=== PATIENT | male | born 1945 | race Hispanic/Latino ===

== ENCOUNTER → 2018-11-01 | Outpatient (CLI) | payer OTHER ==
[~2018-11-01] MED LIST: LEVO125 PO; TAMS0.4C32 PO
[2018-11-01 12:28] LABS: CREATININE 0.9 mg/dL (0.5-1.5)
== END | disposition home or self-care (01) ==
LOC: LAB 11:24
PROVIDERS: ATTEND Otolaryngology Plastic Surgery within the Head & Neck
DX: R22.1 Localized swelling, mass and lump, neck (principal)
CPT/HCPCS: 36415; 82565; 84520

== ENCOUNTER → 2018-11-08 | Outpatient (CLI) | payer MEDICARE, OTHER ==
[~2018-11-08] MED LIST changes: +IOHEXOL-350 50ML VIAL IV ONE
== END | disposition home or self-care (01) ==
LOC: RAH 12:39
PROVIDERS: ATTEND Otolaryngology Plastic Surgery within the Head & Neck
DX: R22.1 Localized swelling, mass and lump, neck (principal)
CPT/HCPCS: 70491; Q9967

== ENCOUNTER 2018-12-23 09:56 | Emergency (ER) | payer OTHER ==
[~2018-12-23 09:56] MED LIST changes: -IOHEXOL-350 50ML VIAL IV ONE
[2018-12-23 10:17] LABS: APPEARANCE,URINE Clear (CLEAR); BILIRUBIN,URINE Negative (NEGATIVE); COLOR,URINE Yellow (YELLOW); GLUCOSE, URINE (UA) Negative (NEGATIVE); KETONES,URINE Negative (NEGATIVE); LEUKOCYTE ESTERASE ,URINE Negative (NEGATIVE); NITRATE,URINE Negative (NEGATIVE); OCCULT BLOOD,URINE Negative (NEGATIVE); PH,URINE 6.5 (5.0-8.0); PROTEIN,URINE Negative (NEGATIVE)
[2018-12-23] MEDS ORDERED: SODIUM CHLORIDE 0.9% 500ML 500 ML IV ONE (10:54)
[2018-12-23 10:59] LABS: BASOPHILS % (AUTO) 0.7 % (0.0-5.0); EOSINOPHILS % (AUTO) 1.7 % (0.0-8.0); LYMPHOCYTES % (AUTO) 13.5 % (21.0-51.0); MEAN CORPUSCULAR HEMOGLOBIN 31.5 pg (27.0-33.0); MEAN CORPUSCULAR HGB CONC 33.8 g/dL (32.0-36.0); MEAN CORPUSCULAR VOLUME 93.4 fL (79-99); MONOCYTES % (AUTO) 7.6 % (3.0-13.0); NEUTROPHILS % (AUTO) 76.5 % (40.0-77.0); PLATELET COUNT (AUTO) 257 K/uL (130-400); RED CELL DISTRIBUTION WIDTH 14.2 % (11.0-15.5); WHITE BLOOD COUNT (AUTO) 8.9 K/uL (4.8-10.8)
[2018-12-23 11:06] LABS: CREATININE 0.8 mg/dL (0.5-1.5); POTASSIUM 4.8 mmol/L (3.5-5.1)
[2018-12-23 11:10] LABS: ALBUMIN 3.3 g/dL (3.5-5.0); BILIRUBIN,TOTAL 0.4 mg/dL (0.2-1.0); TOTAL PROTEIN, SERUM 7.1 g/dL (6.0-8.3)
== END 2018-12-23 12:30 | disposition home or self-care (01) ==
LOC: EDH 09:56
DX: M54.5 Low back pain (principal); K59.00 Constipation, unspecified; E07.9 Disorder of thyroid, unspecified; Z87.891 Personal history of nicotine dependence; Z88.0 Allergy status to penicillin
CPT/HCPCS: 36415; 74176; 80053; 81003; 84484; 85025; 99285; J7040

== ENCOUNTER → 2019-08-29 | Outpatient (CLI) | payer OTHER ==
[~2019-08-29] MED LIST changes: +DIATR MEGLU/DIATRIZOATE SODIUM 30 ML BOTTLE ONE; -LEVO125 PO; -TAMS0.4C32 PO
== END | disposition home or self-care (01) ==
LOC: RAH 09:24
PROVIDERS: ATTEND Internal Medicine Gastroenterology
DX: K94.20 Gastrostomy complication, unspecified (principal)
CPT/HCPCS: 74018; Q9963

== ENCOUNTER 2019-11-17 12:17 | Emergency (ER) | payer OTHER ==
[~2019-11-17 12:17] MED LIST changes: -DIATR MEGLU/DIATRIZOATE SODIUM 30 ML BOTTLE ONE; +LEVO125 PO; +TAMS0.4C32 PO
[2019-11-17] MEDS ORDERED: ACETAMINOPHEN 325 MG TAB ONE (13:22)
[2019-11-17 13:38] LABS: BASOPHILS % (AUTO) 0.4 % (0.0-5.0); EOSINOPHILS % (AUTO) 1.1 % (0.0-8.0); HEMATOCRIT 40.4 % (42-54); LYMPHOCYTES % (AUTO) 17.4 % (21.0-51.0); MEAN CORPUSCULAR HEMOGLOBIN 31.7 pg (27.0-33.0); MEAN CORPUSCULAR HGB CONC 33.7 g/dL (32.0-36.0); MEAN CORPUSCULAR VOLUME 94.2 fL (79-99); MONOCYTES % (AUTO) 8.4 % (3.0-13.0); NEUTROPHILS % (AUTO) 72.6 % (40.0-77.0); PLATELET COUNT (AUTO) 282 K/uL (130-400); RED BLOOD CELL COUNT(AUTO) 4.29 MIL/uL (4.50-6.20); RED CELL DISTRIBUTION WIDTH 13.7 % (11.0-15.5); WHITE BLOOD COUNT (AUTO) 7.3 K/uL (4.8-10.8)
[2019-11-17 13:55] LABS: INR 0.96 (0.85-1.15); PARTIAL THROMBOPLASTIN TIME 26.1 SEC (26.3-35.5); PROTHROMBIN TIME 10.4 SEC (9.6-11.6)
[2019-11-17 13:57] LABS: ALBUMIN 3.6 g/dL (3.5-5.0); BILIRUBIN,TOTAL 0.3 mg/dL (0.2-1.0); CREATININE 0.8 mg/dL (0.5-1.5); POTASSIUM 3.8 mmol/L (3.5-5.1); TOTAL PROTEIN, SERUM 7.1 g/dL (6.0-8.3)
[2019-11-17 14:03] LABS: APPEARANCE,URINE CLEAR (CLEAR); BILIRUBIN,URINE NEGATIVE (NEGATIVE); COLOR,URINE YELLOW (YELLOW); GLUCOSE, URINE (UA) NEGATIVE (NEGATIVE); KETONES,URINE 5 mg/dL (NEGATIVE); LEUKOCYTE ESTERASE ,URINE NEGATIVE (NEGATIVE); NITRATE,URINE NEGATIVE (NEGATIVE); OCCULT BLOOD,URINE NEGATIVE (NEGATIVE); PH,URINE 5.5 (5.0-8.0); PROTEIN,URINE NEGATIVE (NEGATIVE); UROBILINOGEN,URINE 0.2 mg/dL (0.2-1.0)
[2019-11-17] MEDS ORDERED: SODIUM CHLORIDE 0.9% 1000ML 1,000 ML IV ONE (14:33)
[2019-11-17] MEDS ORDERED: IOHEXOL 350 MG/ML 100ML INFUS..BTL IV ONE (14:35)
[2019-11-17 14:44] LABS: BACTERIA,URINE Rare /HPF (None Seen); MUCUS,URINE Moderate LPF (None Seen); RBC,URINE 0-1 /HPF (0-1); SQUAMOUS EPITHELIAL CELL,UR Rare /HPF (0-2); WBC,URINE 0-1 /HPF (0-1)
== END 2019-11-17 16:38 | disposition home or self-care (01) ==
LOC: EDH 12:17
DX: S39.012A Strain of muscle, fascia and tendon of lower back, initial encounter (principal); S16.1XXA Strain of muscle, fascia and tendon at neck level, initial encounter; Z88.1 Allergy status to other antibiotic agents; Z88.0 Allergy status to penicillin; V49.49XA Driver injured in collision with other motor vehicles in traffic accident, initial encounter; Y93.89 Activity, other specified; Y92.488 Other paved roadways as the place of occurrence of the external cause; Y99.8 Other external cause status
CPT/HCPCS: 36415; 70450; 72125; 74177; 80053; 81001; 85025; 85610; 85730; 96360; 99285; J7030; Q9967

== ENCOUNTER → 2020-03-12 | Outpatient (CLI) | payer OTHER ==
[~2020-03-12] MED LIST changes: +DIATR MEGLU/DIATRIZOATE SODIUM 30 ML BOTTLE ONE
== END | disposition home or self-care (01) ==
LOC: RAH 10:08
PROVIDERS: ATTEND Internal Medicine Gastroenterology
DX: R19.8 Other specified symptoms and signs involving the digestive system and abdomen (principal); M47.815 Spondylosis without myelopathy or radiculopathy, thoracolumbar region; Z93.1 Gastrostomy status
CPT/HCPCS: 74018; Q9963

== ENCOUNTER → 2020-05-13 | Outpatient (CLI) | payer OTHER ==
[~2020-05-13] MED LIST changes: -DIATR MEGLU/DIATRIZOATE SODIUM 30 ML BOTTLE ONE
== END | disposition home or self-care (01) ==
LOC: SHCH 08:37
PROVIDERS: ATTEND Internal Medicine Cardiovascular Disease
DX: R09.89 Other specified symptoms and signs involving the circulatory and respiratory systems (principal)
CPT/HCPCS: 93880

== ENCOUNTER → 2020-05-15 | Outpatient (CLI) | payer OTHER ==
[~2020-05-15] VITALS: Ht 175.3 cm; Wt 75.7 kg
[~2020-05-15] MED LIST changes: +REGADENOSON 0.4 MG/5 ML PF SYG IVP SCH
== END | disposition home or self-care (01) ==
LOC: SHCH 07:50
PROVIDERS: ATTEND Internal Medicine Cardiovascular Disease
DX: I25.10 Atherosclerotic heart disease of native coronary artery without angina pectoris (principal)
CPT/HCPCS: 78452; 93017; 96374; A9500 ×2; J2785

== ENCOUNTER 2020-05-29 05:32 | Day surgery (SDC) | payer OTHER ==
[2020-05-27 11:31] VITALS: BP 170/74
[2020-05-27 12:10] LABS: BASOPHILS % (AUTO) 0.4 % (0.0-5.0); EOSINOPHILS % (AUTO) 0.4 % (0.0-8.0); HEMATOCRIT 44.7 % (42-54); LYMPHOCYTES % (AUTO) 9.3 % (21.0-51.0); MEAN CORPUSCULAR HEMOGLOBIN 30.4 pg (27.0-33.0); MEAN CORPUSCULAR HGB CONC 32.2 g/dL (32.0-36.0); MEAN CORPUSCULAR VOLUME 94.3 fL (79-99); MONOCYTES % (AUTO) 7.6 % (3.0-13.0); NEUTROPHILS % (AUTO) 81.9 % (40.0-77.0); PLATELET COUNT (AUTO) 325 K/uL (130-400); RED BLOOD CELL COUNT(AUTO) 4.74 MIL/uL (4.50-6.20); WHITE BLOOD COUNT (AUTO) 11.2 K/uL (4.8-10.8)
[2020-05-27 12:15] LABS: APPEARANCE,URINE Clear (CLEAR); BILIRUBIN,URINE Negative (NEGATIVE); COLOR,URINE Yellow (YELLOW); GLUCOSE, URINE (UA) Negative (NEGATIVE); KETONES,URINE Negative (NEGATIVE); LEUKOCYTE ESTERASE ,URINE Negative (NEGATIVE); NITRATE,URINE Negative (NEGATIVE); OCCULT BLOOD,URINE Negative (NEGATIVE); PH,URINE 6.5 (5.0-8.0); PROTEIN,URINE Negative (NEGATIVE); UROBILINOGEN,URINE 0.2 mg/dL (0.2-1.0)
[2020-05-27 12:21] LABS: CREATININE 0.7 mg/dL (0.5-1.5); POTASSIUM 4.2 mmol/L (3.5-5.1)
[2020-05-27 12:22] LABS: INR 1.03 (0.85-1.15); PROTHROMBIN TIME 11.2 SEC (9.6-11.6)
[2020-05-29] VITALS (13 sets, daily range): BP systolic 130–156; BP diastolic 55–68
[~2020-05-29] VITALS: Ht 167.6 cm; Wt 76.3 kg
[~2020-05-29 05:32] MED LIST changes: +ASPI-1197 PO; -REGADENOSON 0.4 MG/5 ML PF SYG IVP SCH; +SAW PALMETTO PO; +SODIUM CHLORIDE 0.9% 500ML 500 ML IV SCH
[2020-05-29] MEDS ORDERED: SODIUM CHLORIDE 0.9% 1000ML 1,000 ML IV ONE (06:14)
[2020-05-29] MEDS ORDERED: NITROGLYCERIN 2 MG/VIAL VIAL IV ONE (08:29)
[2020-05-29] MEDS ORDERED: BIVALIRUDIN 250 MG/VIAL IV ONE (08:29)
[2020-05-29] MEDS ORDERED: IOHEXOL-350 75 ML VIAL IV ONE (08:29)
[2020-05-29] MEDS ORDERED: MIDAZOLAM HCL 1 MG/ML 2ML VIAL ONE (08:29)
[2020-05-29] MEDS ORDERED: IOHEXOL 350 MG/ML 100ML INFUS..BTL IV ONE (08:29)
[2020-05-29] MEDS ORDERED: FENTANYL CITRATE PF 50 MCG/1 ML 2ML VIAL ONE (08:30)
[2020-05-29] MEDS ORDERED: LIDOCAINE HCL 2% 20ML ONE (08:30)
[2020-05-29] MEDS ORDERED: SODIUM CHLORIDE 0.9% 1000ML 1,000 ML IV SCH (10:30)
[2020-05-29] MEDS ORDERED: DEXTROSE 50%-WATER 50 ML DISP.SYRIN IV PRN (10:30)
[2020-05-29] MEDS ORDERED: GLUCAGON 1MG KIT 1 MG ML IM PRN (10:30)
[2020-05-29] MEDS ORDERED: NITROGLYCERIN 0.4 MG SL TAB SL PRN (10:30)
[2020-05-29 13:43] LABS: T4 (THYROXINE) 6.2 ug/dL (4.7-13.3); THYROID STIMULATING HORMONE 5.31 uIU/mL (0.36-3.74)
== END 2020-05-29 16:10 | disposition home or self-care (01) ==
LOC: DAH 05:32
PROVIDERS: ATTEND Internal Medicine Cardiovascular Disease
DX: I25.119 Atherosclerotic heart disease of native coronary artery with unspecified angina pectoris (principal); I65.23 Occlusion and stenosis of bilateral carotid arteries; I77.9 Disorder of arteries and arterioles, unspecified; E66.9 Obesity, unspecified; E03.9 Hypothyroidism, unspecified; Z88.8 Allergy status to other drugs, medicaments and biological substances; I82.432 Acute embolism and thrombosis of left popliteal vein; Z88.0 Allergy status to penicillin; Z79.01 Long term (current) use of anticoagulants; Z98.890 Other specified postprocedural states; Z87.891 Personal history of nicotine dependence; Z79.82 Long term (current) use of aspirin; Z87.898 Personal history of other specified conditions; Z92.3 Personal history of irradiation; Z79.890 Hormone replacement therapy; Z82.49 Family history of ischemic heart disease and other diseases of the circulatory system; Z68.24 Body mass index [BMI] 24.0-24.9, adult; Z85.810 Personal history of malignant neoplasm of tongue
CPT/HCPCS: 36223; 36415 ×2; 80048; 81003; 84436; 84443; 84481; 85025; 85610; 85730; 93005; 93458; 93970; A4215; A4216; A4221; A4222; A4223 ×3; A4606; A4663; C1760; C1769; C1894 ×2; J1644 ×2; J2250; J3010; J3490 ×2; J7030 ×2; Q9965 ×2; Q9967 ×2; 96360; 96361; 99156; 99157; J0583

== ENCOUNTER 2020-05-31 15:21 | Emergency (ER) | payer OTHER ==
[~2020-05-31 15:21] MED LIST changes: -SODIUM CHLORIDE 0.9% 500ML 500 ML IV SCH
[2020-05-31] MEDS ORDERED: DIATR MEGLU/DIATRIZOATE SODIUM 30 ML BOTTLE ONE (16:37)
== END 2020-05-31 17:14 | disposition home or self-care (01) ==
LOC: EDH 15:21
DX: Z43.1 Encounter for attention to gastrostomy (principal); E07.9 Disorder of thyroid, unspecified; Z88.1 Allergy status to other antibiotic agents; Z87.891 Personal history of nicotine dependence; Z85.818 Personal history of malignant neoplasm of other sites of lip, oral cavity, and pharynx; Z86.718 Personal history of other venous thrombosis and embolism
CPT/HCPCS: 43762; 74018; 99284; Q9963

== ENCOUNTER 2020-06-11 11:00 | Inpatient (IN) | payer OTHER ==
[~2020-06-11] VITALS: Ht 172.7 cm; Wt 74.8 kg
[~2020-06-11 11:00] MED LIST changes: -ASPI-1197 PO; -LEVO125 PO; -SAW PALMETTO PO
[2020-06-16 09:03] LABS: BASOPHILS % (AUTO) 0.5 % (0.0-5.0); EOSINOPHILS % (AUTO) 2.7 % (0.0-8.0); HEMATOCRIT 44.3 % (42-54); LYMPHOCYTES % (AUTO) 15.9 % (21.0-51.0); MEAN CORPUSCULAR HEMOGLOBIN 31.3 pg (27.0-33.0); MEAN CORPUSCULAR HGB CONC 32.5 g/dL (32.0-36.0); MEAN CORPUSCULAR VOLUME 96.3 fL (79-99); MONOCYTES % (AUTO) 9.4 % (3.0-13.0); NEUTROPHILS % (AUTO) 71.2 % (40.0-77.0); PLATELET COUNT (AUTO) 260 K/uL (130-400); RED CELL DISTRIBUTION WIDTH 14.6 % (11.0-15.5)
[2020-06-16 09:05] LABS: APPEARANCE,URINE Clear (CLEAR); BILIRUBIN,URINE Negative (NEGATIVE); COLOR,URINE Yellow (YELLOW); GLUCOSE, URINE (UA) Negative (NEGATIVE); KETONES,URINE Negative (NEGATIVE); LEUKOCYTE ESTERASE ,URINE Trace (NEGATIVE); NITRATE,URINE Negative (NEGATIVE); OCCULT BLOOD,URINE Negative (NEGATIVE); PROTEIN,URINE Negative (NEGATIVE); UROBILINOGEN,URINE 0.2 mg/dL (0.2-1.0)
[2020-06-16 09:15] LABS: BACTERIA,URINE Rare /HPF (None Seen); RBC,URINE 0-1 /HPF (0-1); SQUAMOUS EPITHELIAL CELL,UR Rare /HPF (0-2); WBC,URINE 0-1 /HPF (0-1)
[2020-06-16 09:18] LABS: ALBUMIN 3.6 g/dL (3.5-5.0); BILIRUBIN,DIRECT 0.1 mg/dL (0.0-0.3); BILIRUBIN,TOTAL 0.4 mg/dL (0.2-1.0); CREATININE 0.7 mg/dL (0.5-1.5); POTASSIUM 4.5 mmol/L (3.5-5.1); TOTAL PROTEIN, SERUM 7.2 g/dL (6.0-8.3)
[2020-06-16 09:22] LABS: INR 1.02 (0.85-1.15); PROTHROMBIN TIME 11.1 SEC (9.6-11.6)
[2020-06-17] MEDS ORDERED: CLINDAMYCIN IVPB 900MG/50ML 50 ML IV SCH (06:00)
[2020-06-17 14:22] VITALS: BP 155/72
[2020-06-17] MEDS ORDERED: LEVO100C4 PO (14:47)
[2020-06-17] MEDS ORDERED: APIX5TAB PO (14:47)
[2020-06-18] VITALS (45 sets, daily range): BP systolic 85–167; BP diastolic 35–89
[2020-06-18] MEDS ORDERED: EPINEPHRINE PF 1MG AMP 10 MG in 0.9% NACL 250ML 240 ML IV PRN (06:15)
[2020-06-18] MEDS ORDERED: NOREPINEPHRINE BITARTRATE 8 MG in DEXTROSE 5%-WATER 250 ML IV PRN (06:15)
[2020-06-18] MEDS ORDERED: AMINOCAPROIC ACID 5,000MG VIAL 15,000 MG in 0.9% NACL 500ML IV.SOLN 420 ML IV PRN (06:15)
[2020-06-18] MEDS ORDERED: NITROGLYCERIN 50MG/D5W 250ML 1 BOT ONE (06:32)
[2020-06-18] MEDS ORDERED: HEPARIN 10,000 UNIT/10ML (1,000 UNIT/ML) VIAL ONE ×3 (06:42→09:38)
[2020-06-18] MEDS ORDERED: PAPAVERINE HCL 30 MG/ML 2ML VIAL ONE (06:42)
[2020-06-18] MEDS ORDERED: CEFAZOLIN SODIUM 1 GM VIAL ONE ×3 (06:50→10:45)
[2020-06-18] MEDS ORDERED: LACTATED RINGERS 1000ML 1,000 ML IV ONE (06:50)
[2020-06-18] MEDS ORDERED: VANCOMYCIN 1G/250ML KIT 250 ML IV ONE (06:58)
[2020-06-18] MEDS ORDERED: 0.9%NACL 1000ML 1,000 ML IV ONE ×2 (07:01→12:29)
[2020-06-18] MEDS ORDERED: DELNIDO FORMULA 2 BAG IV ONE (07:10)
[2020-06-18] MEDS ORDERED: NOREPINEPHRINE BITARTRATE 1 MG/1 ML ML IV ONE ×2 (07:11→07:37)
[2020-06-18] MEDS ORDERED: AMIODARONE 150MG VIAL ONE (07:20)
[2020-06-18] MEDS ORDERED: LIDOCAINE PF 100MG/5ML (2%) SYRINGE 5ML ONE (07:37)
[2020-06-18] MEDS ORDERED: SODIUM BICARB 50MEQ 50ML VIAL 150 ML ONE (07:37)
[2020-06-18] MEDS ORDERED: AMINOCAPROIC ACID 5,000MG VIAL ONE (07:37)
[2020-06-18] MEDS ORDERED: PROPOFOL 10 MG/ML 20ML VIAL IV ONE (07:37)
[2020-06-18] MEDS ORDERED: PROTAMINE SULFATE 10 MG/ML 25ML VIAL IV ONE (07:37)
[2020-06-18] MEDS ORDERED: EPINEPHRINE PF 1MG AMP ONE (07:37)
[2020-06-18] MEDS ORDERED: ESMOLOL HCL 10 MG/ML 10 ML VIAL ONE (07:37)
[2020-06-18] MEDS ORDERED: FENTANYL CITRATE PF 50 MCG/1 ML 20ML VIAL IJ ONE (07:38)
[2020-06-18] MEDS ORDERED: MIDAZOLAM HCL 1 MG/ML 2ML VIAL ONE (07:38)
[2020-06-18] MEDS ORDERED: ROCURONIUM 10MG/1ML SYR 10 MG/ML ML ONE (07:38)
[2020-06-18] MEDS ORDERED: KETAMINE HCL 100 MG/ML 5ML VIAL IJ ONE (07:42)
[2020-06-18] MEDS ORDERED: CEFAZOLIN SODIUM 1 GM VIAL IVP ONE (08:00)
[2020-06-18 12:11] LABS: ABG BASE EXCESS -0.3 mmol/L (-2.0-3.0); ABG HCO3 23.9 mmol/L (21.0-28.0); ABG OXYGEN SATURATION 99.2 % (95.0-99.0); ABG PCO2 37 mmHg (35-48)
[2020-06-18 12:16] LABS: HEMATOCRIT 36.6 % (42-54); MEAN CORPUSCULAR HEMOGLOBIN 31.4 pg (27.0-33.0); MEAN CORPUSCULAR HGB CONC 33.3 g/dL (32.0-36.0); MEAN CORPUSCULAR VOLUME 94.3 fL (79-99); RED BLOOD CELL COUNT(AUTO) 3.88 MIL/uL (4.50-6.20); RED CELL DISTRIBUTION WIDTH 14.4 % (11.0-15.5); WHITE BLOOD COUNT (AUTO) 18.2 K/uL (4.8-10.8)
[2020-06-18 12:26] LABS: POTASSIUM 4.4 mmol/L (3.5-5.1)
[2020-06-18 12:29] LABS: INR 1.1 (0.85-1.15); PROTHROMBIN TIME 11.9 SEC (9.6-11.6)
[2020-06-18 12:30] LABS: MAGNESIUM 2.3 mg/dL (1.80-2.40); PARTIAL THROMBOPLASTIN TIME 23.9 SEC (26.3-35.5); PHOSPHORUS 2.6 mg/dL (2.5-4.9)
[2020-06-18] MEDS ORDERED: MORPHINE 4 MG SYG IV PRN (12:45)
[2020-06-18] MEDS ORDERED: INSULIN REGULAR, HUMAN 3ML 100 UNIT in 0.9%NACL 100ML 99 ML IV PRN ×2 (12:45)
[2020-06-18] MEDS ORDERED: ONDANSETRON 4MG INJ IVP PRN (12:45)
[2020-06-18] MEDS: MORPHINE 2 MG SYG IVP PRN ×3 (13:39→22:10)
[2020-06-18 15:15] LABS: ABG BASE EXCESS -2.9 mmol/L (-2.0-3.0); ABG HCO3 22.9 mmol/L (21.0-28.0); ABG OXYGEN SATURATION 98.6 % (95.0-99.0); ABG PCO2 44 mmHg (35-48)
[2020-06-18 20:31] LABS: ABG BASE EXCESS 0.1 mmol/L (-2.0-3.0); ABG HCO3 25.8 mmol/L (21.0-28.0); ABG OXYGEN SATURATION 98.7 % (95.0-99.0); ABG PCO2 46 mmHg (35-48)
[2020-06-18] MEDS: ALBUMIN (HUMAN) 5% 250 ML IV SCH ×2 (21:42→22:50)
[2020-06-18] MEDS ORDERED: ALBUMIN (HUMAN) 5% 250 ML IV SCH (22:45)
[2020-06-18] MEDS ORDERED: ASPIRIN 81MG CHEW TAB PEG SCH (23:55)
[2020-06-19] VITALS (45 sets, daily range): BP systolic 89–153; BP diastolic 28–75
[2020-06-19] MEDS: MORPHINE 2 MG SYG IVP PRN ×2 (02:15→04:57)
[2020-06-19 04:10] LABS: HEMATOCRIT 33.8 % (42-54); MEAN CORPUSCULAR HEMOGLOBIN 31.5 pg (27.0-33.0); MEAN CORPUSCULAR HGB CONC 33.1 g/dL (32.0-36.0); MEAN CORPUSCULAR VOLUME 95.2 fL (79-99); RED BLOOD CELL COUNT(AUTO) 3.55 MIL/uL (4.50-6.20); RED CELL DISTRIBUTION WIDTH 14.7 % (11.0-15.5); WHITE BLOOD COUNT (AUTO) 11.3 K/uL (4.8-10.8)
[2020-06-19 04:22] LABS: CREATININE 0.6 mg/dL (0.5-1.5); MAGNESIUM 2.1 mg/dL (1.80-2.40); PHOSPHORUS 3.1 mg/dL (2.5-4.9); POTASSIUM 3.9 mmol/L (3.5-5.1)
[2020-06-19] MEDS ORDERED: KETOROLAC 15MG/ML VIAL (15MG/ML) ONE (08:16)
[2020-06-19] MEDS: KETOROLAC 15MG/ML VIAL (15MG/ML) IM SCH ×3 (08:30→15:32)
[2020-06-19] MEDS: ASPIRIN 81MG CHEW TAB PEG SCH ×2 (08:33→10:53)
[2020-06-19] MEDS ORDERED: NITROGLYCERIN 50 MG/D5% WATER 250 ML IV PRN (08:45)
[2020-06-19] MEDS ORDERED: NICARDIPINE HCL 100 MG/NS 100ML IV SCH ×2 (08:45)
[2020-06-19] MEDS ORDERED: ACETAMINOPHEN 650 MG SUPPOSITORY RC PRN (08:45)
[2020-06-19] MEDS ORDERED: NOREPINEPHRIN 4MG/NS 250ML 250 ML IV PRN (08:45)
[2020-06-19] MEDS ORDERED: MAGNESIUM 2GM PREMIX IV PRN (08:45)
[2020-06-19] MEDS ORDERED: DEXTROSE 5% IV PRN (08:45)
[2020-06-19] MEDS ORDERED: INSULIN REGULAR, HUMAN 3ML 100 UNIT in 0.9%NACL 100ML 99 ML IV SCH ×2 (08:45)
[2020-06-19] MEDS ORDERED: ONDANSETRON 4MG INJ IVP PRN (08:45)
[2020-06-19] MEDS ORDERED: CALCIUM GLUC IV PRN (08:45)
[2020-06-19] MEDS ORDERED: WATER IV PRN (08:45)
[2020-06-19] MEDS ORDERED: PROPOFOL 1000 MG/100 ML 100 ML IV PRN (08:45)
[2020-06-19] MEDS ORDERED: POTASSIUM CHLORIDE 20MEQ/100ML 100 ML IV PRN (08:45)
[2020-06-19] MEDS ORDERED: POTASSIUM PHOS 15 mMOL+NS250ML 250 ML IV PRN (08:45)
[2020-06-19] MEDS ORDERED: 0.9% NACL 500ML IV.SOLN 500 ML IV SCH (08:45)
[2020-06-19] MEDS ORDERED: ACETAMINOPHEN 325 MG TAB PO PRN (08:45)
[2020-06-19] MEDS ORDERED: SODIUM BICARB 8.4% 50ML SYRINGE IV PRN (08:45)
[2020-06-19] MEDS ORDERED: POTASSIUM CHLORIDE 20MEQ/10ML 10 MEQ in 0.9%NACL 50ML 50 ML IV PRN (08:45)
[2020-06-19] MEDS ORDERED: 0.9%NACL 1000ML 1,000 ML IV SCH (08:45)
[2020-06-19] MEDS ORDERED: MORPHINE 4 MG SYG IVP PRN (08:45)
[2020-06-19] MEDS ORDERED: METOPROLOL TARTRATE 25 MG TAB PO SCH (09:15)
[2020-06-19] MEDS ORDERED: ENOXAPARIN SODIUM 30 MG/0.3 ML SQ SCH ×2 (09:45→21:00)
[2020-06-19] MEDS: METOPROLOL TARTRATE 25 MG TAB PO SCH ×2 (09:45→20:11)
[2020-06-19] MEDS: LEVOTHYROXINE 100 MCG TABLET PO SCH ×2 (10:53→11:02)
[2020-06-19] MEDS: PANTOPRAZOLE 40 MG/VIAL IVP SCH (11:00)
[2020-06-19] MEDS: TAMSULOSIN HCL 0.4 MG CAP.ER.24H PO SCH (20:13)
[2020-06-19] MEDS: KETOROLAC 30MG VIAL (30MG/ML) IVP PRN (21:30)
[2020-06-20] VITALS (34 sets, daily range): BP systolic 96–135; BP diastolic 30–64
[2020-06-20 03:30] LABS: HEMATOCRIT 31.5 % (42-54); MEAN CORPUSCULAR HGB CONC 31.7 g/dL (32.0-36.0); MEAN CORPUSCULAR VOLUME 97.5 fL (79-99); RED BLOOD CELL COUNT(AUTO) 3.23 MIL/uL (4.50-6.20); RED CELL DISTRIBUTION WIDTH 15.1 % (11.0-15.5); WHITE BLOOD COUNT (AUTO) 10.9 K/uL (4.8-10.8)
[2020-06-20 03:42] LABS: CREATININE 0.8 mg/dL (0.5-1.5); MAGNESIUM 2.3 mg/dL (1.80-2.40); POTASSIUM 4.2 mmol/L (3.5-5.1)
[2020-06-20] MEDS: KETOROLAC 30MG VIAL (30MG/ML) IVP PRN ×2 (04:59→11:10)
[2020-06-20] MEDS: TAMSULOSIN HCL 0.4 MG CAP.ER.24H PO SCH (08:01)
[2020-06-20] MEDS: SENNOSIDES 8.6 MG TABLET PEG SCH (08:02)
[2020-06-20] MEDS: PANTOPRAZOLE 40 MG/VIAL IVP SCH (08:02)
[2020-06-20] MEDS: METOPROLOL TARTRATE 25 MG TAB PO SCH ×2 (08:02→20:31)
[2020-06-20] MEDS: LEVOTHYROXINE 100 MCG TABLET PO SCH (08:03)
[2020-06-20] MEDS ORDERED: POTASSIUM PHOS 15 mMOL+NS250ML 250 ML IV SCH (09:00)
[2020-06-20] MEDS: DOCUSATE NA 100MG/10ML UDCUP PO SCH (20:30)
[2020-06-20] MEDS: ENOXAPARIN SODIUM 30 MG/0.3 ML SQ SCH (20:31)
[2020-06-20] MEDS: HYDROCODONE/ACETAMINOPHEN 5/325 MG TAB PO PRN (20:35)
[2020-06-21] VITALS (16 sets, daily range): BP systolic 94–124; BP diastolic 43–63
[2020-06-21] MEDS: HYDROCODONE/ACETAMINOPHEN 5/325 MG TAB PO PRN ×2 (03:29→15:28)
[2020-06-21 05:03] LABS: ALBUMIN 2.5 g/dL (3.5-5.0); BILIRUBIN,TOTAL 0.5 mg/dL (0.2-1.0); CREATININE 0.9 mg/dL (0.5-1.5); MAGNESIUM 1.7 mg/dL (1.80-2.40); PHOSPHORUS 4.5 mg/dL (2.5-4.9); POTASSIUM 3.8 mmol/L (3.5-5.1); TOTAL PROTEIN, SERUM 7.4 g/dL (6.0-8.3)
[2020-06-21] MEDS: LEVOTHYROXINE 100 MCG TABLET PO SCH ×2 (05:30→08:31)
[2020-06-21 08:00] LABS: BASOPHILS % (AUTO) 0.1 % (0.0-5.0); EOSINOPHILS % (AUTO) 1.5 % (0.0-8.0); HEMATOCRIT 32.8 % (42-54); LYMPHOCYTES % (AUTO) 6.8 % (21.0-51.0); MEAN CORPUSCULAR HEMOGLOBIN 31.5 pg (27.0-33.0); MEAN CORPUSCULAR HGB CONC 32.3 g/dL (32.0-36.0); MEAN CORPUSCULAR VOLUME 97.6 fL (79-99); MONOCYTES % (AUTO) 6.4 % (3.0-13.0); NEUTROPHILS % (AUTO) 84.7 % (40.0-77.0); PLATELET COUNT (AUTO) 162 K/uL (130-400); RED BLOOD CELL COUNT(AUTO) 3.36 MIL/uL (4.50-6.20); WHITE BLOOD COUNT (AUTO) 7.8 K/uL (4.8-10.8)
[2020-06-21] MEDS: KETOROLAC 15MG/ML VIAL (15MG/ML) IM SCH (08:18)
[2020-06-21] MEDS: TAMSULOSIN HCL 0.4 MG CAP.ER.24H PO SCH (08:19)
[2020-06-21] MEDS: METOPROLOL TARTRATE 25 MG TAB PO SCH ×2 (08:19→20:13)
[2020-06-21] MEDS: SENNOSIDES 8.6 MG TABLET PEG SCH (08:19)
[2020-06-21] MEDS: PANTOPRAZOLE 40 MG/VIAL IVP SCH (08:22)
[2020-06-21] MEDS: ASPIRIN 81MG CHEW TAB PEG SCH (08:22)
[2020-06-21] MEDS: ENOXAPARIN SODIUM 30 MG/0.3 ML SQ SCH (08:22)
[2020-06-21] MEDS: MORPHINE 2 MG SYG IVP PRN (20:12)
[2020-06-21] MEDS: DOCUSATE NA 100MG/10ML UDCUP PO SCH (20:18)
[2020-06-22 03:58] VITALS: BP 107/66
[2020-06-22] MEDS ORDERED: POTASSIUM CHLORIDE 10% ELIXIR 20 MEQ/15 ML UDCUP ONE (05:41)
[2020-06-22] MEDS ORDERED: LACTULOSE 20 GM/30 ML UDCUP ONE (05:42)
[2020-06-22] MEDS ORDERED: LACTULOSE 20 GM/30 ML UDCUP PO PRN ×2 (05:45→12:00)
[2020-06-22] MEDS: LEVOTHYROXINE 100 MCG TABLET PO SCH ×2 (05:45→07:49)
[2020-06-22] MEDS ORDERED: POTASSIUM CHLORIDE 10% ELIXIR 20 MEQ/15 ML UDCUP PO PRN (05:45)
[2020-06-22] MEDS ORDERED: KCL 20 MEQ ERTAB PO PRN (05:45)
[2020-06-22] MEDS: MORPHINE 2 MG SYG IVP PRN (06:15)
[2020-06-22 07:00] VITALS: BP 108/58
[2020-06-22] MEDS: KETOROLAC 15MG/ML VIAL (15MG/ML) IM SCH (07:48)
[2020-06-22] MEDS ORDERED: MAGNESIUM CITRATE 296 ML SOLUTION ONE (08:53)
[2020-06-22] MEDS ORDERED: MAGNESIUM CITRATE 296 ML SOLUTION PO SCH (09:00)
[2020-06-22] MEDS: TAMSULOSIN HCL 0.4 MG CAP.ER.24H PO SCH (09:27)
[2020-06-22] MEDS: PANTOPRAZOLE 40 MG/VIAL IVP SCH (09:27)
[2020-06-22] MEDS: ASPIRIN 81MG CHEW TAB PEG SCH (09:27)
[2020-06-22] MEDS: METOPROLOL TARTRATE 25 MG TAB PO SCH ×2 (09:29→21:32)
[2020-06-22] MEDS: SENNOSIDES 8.6 MG TABLET PEG SCH (09:29)
[2020-06-22] MEDS: ENOXAPARIN SODIUM 30 MG/0.3 ML SQ SCH (09:30)
[2020-06-22] MEDS: HYDROCODONE/ACETAMINOPHEN 5/325 MG TAB PO PRN ×4 (09:33→21:09)
[2020-06-22 11:00] VITALS: BP 100/61
[2020-06-22 15:00] VITALS: BP 121/61
[2020-06-22] MEDS: LUBIPROSTONE 24 MCG CAP PO SCH (17:00)
[2020-06-22 19:32] VITALS: BP 122/61
[2020-06-22] MEDS: DOCUSATE NA 100MG/10ML UDCUP PO SCH (21:32)
[2020-06-22 23:48] VITALS: BP 125/71
[2020-06-23] MEDS: HYDROCODONE/ACETAMINOPHEN 5/325 MG TAB PO PRN ×3 (00:03→13:53)
[2020-06-23 03:53] VITALS: BP 135/69
[2020-06-23 05:47] LABS: BASOPHILS % (AUTO) 0.4 % (0.0-5.0); EOSINOPHILS % (AUTO) 5.1 % (0.0-8.0); HEMATOCRIT 32.6 % (42-54); LYMPHOCYTES % (AUTO) 7.6 % (21.0-51.0); MEAN CORPUSCULAR HEMOGLOBIN 30.9 pg (27.0-33.0); MEAN CORPUSCULAR HGB CONC 32.2 g/dL (32.0-36.0); MEAN CORPUSCULAR VOLUME 95.9 fL (79-99); MONOCYTES % (AUTO) 9.4 % (3.0-13.0); NEUTROPHILS % (AUTO) 76.4 % (40.0-77.0); PLATELET COUNT (AUTO) 232 K/uL (130-400); RED CELL DISTRIBUTION WIDTH 14.8 % (11.0-15.5)
[2020-06-23] MEDS: LEVOTHYROXINE 100 MCG TABLET PO SCH ×2 (05:55→08:58)
[2020-06-23 06:03] LABS: CREATININE 0.7 mg/dL (0.5-1.5); POTASSIUM 4.1 mmol/L (3.5-5.1)
[2020-06-23 08:17] VITALS: BP 127/63
[2020-06-23] MEDS ORDERED: MAGNESIUM CITRATE 296 ML SOLUTION PO SCH (08:45)
[2020-06-23] MEDS: TAMSULOSIN HCL 0.4 MG CAP.ER.24H PO SCH (08:58)
[2020-06-23] MEDS: METOPROLOL TARTRATE 25 MG TAB PO SCH (08:58)
[2020-06-23] MEDS: PANTOPRAZOLE 40 MG/VIAL IVP SCH (08:58)
[2020-06-23] MEDS: ASPIRIN 81MG CHEW TAB PEG SCH (08:59)
[2020-06-23] MEDS: LUBIPROSTONE 24 MCG CAP PO SCH (08:59)
[2020-06-23] MEDS: SENNOSIDES 8.6 MG TABLET PEG SCH (08:59)
[2020-06-23] MEDS ORDERED: CLOPIDOGREL 75MG TAB PO SCH (09:00)
[2020-06-23 12:00] VITALS: BP 120/66
[2020-06-23 16:00] VITALS: BP 122/65
[2020-06-23] MEDS ORDERED: HEPARIN 10,000 UNIT/10ML (1,000 UNIT/ML) VIAL IV ONE (18:43)
[2020-06-23] MEDS ORDERED: MANNITOL 25% 50ML VIAL IV ONE (18:43)
[2020-06-23] MEDS ORDERED: ALBUMIN (HUMAN) 25% 50 ML IV ONE (18:43)
[2020-06-23] MEDS ORDERED: AMINOCAPROIC ACID 5,000MG VIAL IV ONE (18:43)
[2020-06-23] MEDS ORDERED: CACL 1GM SYG IVP ONE (18:43)
[2020-06-23] MEDS ORDERED: HEPARIN 10,000 UNIT VIAL IJ ONE (18:43)
[2020-06-23] MEDS ORDERED: SODIUM BICARB 8.4% 50ML SYRINGE IVP ONE (18:43)
[2021-01-05] MEDS ORDERED: ASPI-1443 PO (13:36)
[2021-01-05] MEDS ORDERED: ATOR20TA65 PO (13:36)
[2021-01-05] MEDS ORDERED: LEVO100C4 PO (13:36)
[2021-01-05] MEDS ORDERED: METO25TA6 PO (13:36)
[2021-01-05] MEDS ORDERED: TADA5TAB13 PO (13:36)
== END 2020-06-23 18:44 | DRG 236 ==
LOC: DAHIP 06-18 05:43 → 2CV 06-18 09:48 → 2CH 06-20 06:19 → 4CH 06-21 10:57
PROVIDERS: ADMIT Thoracic Surgery (Cardiothoracic Vascular Surgery); ATTEND Thoracic Surgery (Cardiothoracic Vascular Surgery)
PROC: 06BP4ZZ Excision of Right Saphenous Vein, Percutaneous Endoscopic Approach (ICD-10-PCS; 2020-06-18)
PROC: 5A1221Z Performance of Cardiac Output, Continuous (ICD-10-PCS; 2020-06-18)
PROC: 02100Z9 Bypass Coronary Artery, One Artery from Left Internal Mammary, Open Approach (ICD-10-PCS; principal; 2020-06-18 07:46)
PROC: 021009W Bypass Coronary Artery, One Artery from Aorta with Autologous Venous Tissue, Open Approach (ICD-10-PCS; 2020-06-18 07:46)
PROC: 06BQ4ZZ Excision of Left Saphenous Vein, Percutaneous Endoscopic Approach (ICD-10-PCS; 2020-06-18 07:46)
DX: I25.10 Atherosclerotic heart disease of native coronary artery without angina pectoris (principal); I50.32 Chronic diastolic (congestive) heart failure; E03.9 Hypothyroidism, unspecified; E11.9 Type 2 diabetes mellitus without complications; E83.39 Other disorders of phosphorus metabolism; N40.0 Benign prostatic hyperplasia without lower urinary tract symptoms; K59.00 Constipation, unspecified; Z20.822 Contact with and (suspected) exposure to COVID-19; Z82.49 Family history of ischemic heart disease and other diseases of the circulatory system; Z88.1 Allergy status to other antibiotic agents; Z92.21 Personal history of antineoplastic chemotherapy; Z92.3 Personal history of irradiation; Z85.810 Personal history of malignant neoplasm of tongue; Z88.0 Allergy status to penicillin; Z86.718 Personal history of other venous thrombosis and embolism; Z87.891 Personal history of nicotine dependence; Z85.828 Personal history of other malignant neoplasm of skin; Z82.3 Family history of stroke; Z82.0 Family history of epilepsy and other diseases of the nervous system; Z86.711 Personal history of pulmonary embolism; Z93.1 Gastrostomy status; I11.0 Hypertensive heart disease with heart failure
CPT/HCPCS: 36415; 71045; 80048; 80053; 80076; 81001; 82435; 82803; 82947; 82948; 83605; 83735; 84100; 84132; 84295; 85018; 85025; 85027; 85347; 85610; 85730; 86850; 86900; 86901; 86923; 87426; 92526; 93005; 94002; 94150; 97039; A4357; A7048; C1729; C1757; C9113; G0378; J0171; J0282; J0690; J1644; J1650; J1815; J1885; J2001; J2150; J2250; J2270; J2405; J2440; J2704; J2720; J3010; J3370; J3475; J3480; J3490; J7030; J7040; J7120; P9045; P9047; U0003

== ENCOUNTER → 2021-05-25 | Outpatient (CLI) | payer OTHER ==
[~2021-05-25] MED LIST changes: +ASPI-1443 PO; +ATOR20TA65 PO; +DIATR MEGLU/DIATRIZOATE SODIUM 30 ML BOTTLE ONE; +LEVO100C4 PO; +METO25TA6 PO; +TADA5TAB13 PO; -TAMS0.4C32 PO
== END | disposition home or self-care (01) ==
LOC: RAH 10:03
PROVIDERS: ATTEND Internal Medicine Gastroenterology
DX: K57.30 Diverticulosis of large intestine without perforation or abscess without bleeding (principal); Z93.1 Gastrostomy status
CPT/HCPCS: 74018; Q9963

== ENCOUNTER → 2021-12-29 | Outpatient (CLI) | payer OTHER ==
[~2021-12-29] MED LIST changes: -DIATR MEGLU/DIATRIZOATE SODIUM 30 ML BOTTLE ONE
== END | disposition home or self-care (01) ==
LOC: SHCH 10:38
PROVIDERS: ATTEND Internal Medicine Cardiovascular Disease
DX: I65.23 Occlusion and stenosis of bilateral carotid arteries (principal)
CPT/HCPCS: 93880

== ENCOUNTER → 2022-07-14 | Outpatient (CLI) | payer OTHER | END | disposition home or self-care (01) | LOC: SHCH 09:07 | PROVIDERS: ATTEND Internal Medicine Cardiovascular Disease | DX: I87.2 Venous insufficiency (chronic) (peripheral) (principal); I73.9 Peripheral vascular disease, unspecified; I87.1 Compression of vein; R22.41 Localized swelling, mass and lump, right lower limb | CPT/HCPCS: 76882; 76936; 93925; 93970 ==

== ENCOUNTER → 2023-05-19 | Outpatient (CLI) | payer OTHER, MEDICARE | END | disposition home or self-care (01) | LOC: RAH 11:43 | PROVIDERS: ATTEND Family Medicine | DX: M19.031 Primary osteoarthritis, right wrist (principal); M25.531 Pain in right wrist | CPT/HCPCS: 73110 ==

== ENCOUNTER → 2023-05-30 | Outpatient (CLI) | payer OTHER, MEDICARE ==
[~2023-05-30] MED LIST changes: +DIATR MEGLU/DIATRIZOATE SODIUM 30 ML BOTTLE ONE
== END | disposition home or self-care (01) ==
LOC: RAH 09:51
PROVIDERS: ATTEND Internal Medicine Gastroenterology
DX: Z43.1 Encounter for attention to gastrostomy (principal)
CPT/HCPCS: 74018; Q9963

== ENCOUNTER 2024-01-21 11:26 | Emergency (ER) | payer OTHER, MEDICARE ==
[~2024-01-21] VITALS: Ht 170.2 cm; Wt 68.0 kg
[~2024-01-21 11:26] MED LIST changes: -DIATR MEGLU/DIATRIZOATE SODIUM 30 ML BOTTLE ONE
[2024-01-21 11:58] LABS: RAPID GROUP A STREP negative (NEGATIVE)
[2024-01-21 12:08] LABS: COVID19 (SARS ANTIGEN RAPID) PRESUMPTIVE NEGATIVE (NEGATIVE); INFLUENZA TYPE B Negative For Type B (NEGATIVE)
[2024-01-21 12:09] LABS: BASOPHILS # (AUTO) 0.02 K/uL (0.00-0.20); BASOPHILS % (AUTO) 0.3 % (0.0-5.0); HEMATOCRIT 37.5 % (42-54); IMMATURE GRANULOCYTE ABSOLUTE 0.02 K/uL (0-1); LYMPHOCYTES # (AUTO) 0.3 K/uL (1.0-4.8); LYMPHOCYTES % (AUTO) 4.4 % (21.0-51.0); MEAN CORPUSCULAR HEMOGLOBIN 31.3 pg (27.0-33.0); MEAN CORPUSCULAR HGB CONC 33.3 g/dL (32.0-36.0); MEAN CORPUSCULAR VOLUME 93.8 fL (79-99); MONOCYTES # (AUTO) 1.1 K/uL (0.1-1.0); MONOCYTES % (AUTO) 17.1 % (3.0-13.0); NEUTROPHILS # (AUTO) 4.9 K/uL (1.8-7.7); NEUTROPHILS % (AUTO) 77.9 % (40.0-77.0); PLATELET COUNT (AUTO) 247 K/uL (130-400); RED CELL DISTRIBUTION WIDTH 13.2 % (11.0-15.5); WHITE BLOOD COUNT (AUTO) 6.3 K/uL (4.8-10.8)
[2024-01-21 12:24] LABS: CREATININE 0.9 mg/dL (0.5-1.3); POTASSIUM 3.8 mmol/L (3.5-5.1)
[2024-01-21 12:25] LABS: INFLUENZA TYPE A Positive For Type A (NEGATIVE)
[2024-01-21] MEDS: OSELTAMIVIR PHOSPHATE 75 MG CAP PO ONE (12:55)
[2024-01-21] MEDS ORDERED: OSEL75 PO (14:17)
[2024-01-21 14:55] VITALS: BP 107/50; PULSE 76; RESP 16; TEMP 98.9; O2SAT 99
== END 2024-01-21 15:10 | disposition home or self-care (01) ==
LOC: EDH 11:26
DX: J10.1 Influenza due to other identified influenza virus with other respiratory manifestations (principal); I25.10 Atherosclerotic heart disease of native coronary artery without angina pectoris; R79.89 Other specified abnormal findings of blood chemistry; E78.00 Pure hypercholesterolemia, unspecified; Z20.822 Contact with and (suspected) exposure to COVID-19; Z79.82 Long term (current) use of aspirin; Z79.890 Hormone replacement therapy; Z79.899 Other long term (current) drug therapy; Z88.0 Allergy status to penicillin; Z88.1 Allergy status to other antibiotic agents; Z95.1 Presence of aortocoronary bypass graft
CPT/HCPCS: 36415; 71045; 80048; 83605; 84484; 85025; 87040; 87426; 87804; 87880; 93005

== ENCOUNTER 2024-03-07 12:06 | Emergency (ER) | payer OTHER, MEDICARE ==
[~2024-03-07] VITALS: Ht 170.2 cm; Wt 67.1 kg
[~2024-03-07 12:06] MED LIST changes: +OSEL75 PO; +TADA-54 PO; -TADA5TAB13 PO
--- NOTE | 2024-03-07 12:45 | ERN ---
General Chief Complaint: Abdominal Pain Stated Complaint: SENT BY DOCTOR, PROBLEMS WITH FEEDING TUBE Time Seen by MD: 12:08 History of Present Illness Initial Comments 79-year-old male presents to the ED for evaluation due to having problems with his feeding tube. 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 Patient reports his feeding tube have has been working slow. Allergies: Coded Allergies: Penicillins (Verified Allergy, Unknown, 06/18/20) PATIENT STATES NOT ALLERGIC TO PENICILLIN ciprofloxacin (Unverified Allergy, Unknown, 11/17/19) doxycycline (Unverified Allergy, Unknown, 01/06/21) Home Meds Active Scripts Oseltamivir Phosphate (Tamiflu) 75 Mg Cap, 75 MG PO BID for 5 Days, #10 CAP Prov:TRAY SMITH METROLOGY SPECIALIST 01/21/24 Reported Medications Levothyroxine Sodium (Levothyroxine) 100 Mcg Capsule, 100 MCG PO DAILY, CAP 01/05/21 Aspirin (Aspirin EC) 81 Mg Tablet.dr, 81 MG PO DAILY, TAB 01/05/21 Metoprolol Tartrate (Metoprolol Tartrate) 25 Mg Tablet, 25 MG PO DAILY, TAB 01/05/21 Tadalafil (Tadalafil) 5 Mg Tablet, 5 MG PO HS, TAB 01/05/21 Atorvastatin Calcium (Atorvastatin Calcium) 20 Mg Tablet, 20 MG PO HS, TAB 01/05/21 Past Medical History Past Medical History: CAD, Cancer, High Cholesterol Past Surgical History: CABG, Other Surgical History Other: G TUBE, TONGUE SURGERY ROS Dictation Constitutional: Negative for fever,chills, and weight loss Eyes: Negative for injury, pain,redness, and discharge ENT: Negative for injury,pain or swelling Cardiovascular: Negative for chest pain, palpitations, and edema Respiratory: Negative for shortness of breath, cough, and wheezing, Abdomen/GI: Negative for abdominal pain, nausea, vomiting, diarrhea, and constipation Back: Negative for injury and pain : Negative for injury, bleeding and discharge MS/Extremity: Negative for injury and deformity Skin: Negative for rash, and discoloration Neuro: Negative for headache, weakness, numbness, tingling, and seizure Psych: Negative for suicide ideation, homicidal ideation, and hallucinations Physical Exam Physical Exam Dictation General: awake, alert, NAD Head/Face: Normocephalic, atraumatic Eyes: PERRL, EOMI, vision at baseline ENT: oral cavity clear, TMs clear, no signs of infection Neck: Trachea midline, supple, no nuchal rigidity Cardiovascular: RRR, normal S1/S2, No MRGs, no JVD Respiratory: CTAB, no respiratory distress, No rales or wheezes Abdomen: Soft, non-tender, non-distended, normal bowel sounds, no guarding or rebound. Feeding tube in place Skin: Warm, dry, normal turgor, no rash MS/Extremity: Pulses equal, no cyanosis, neurovascular intact, FROM Neuro: COAx4, GCS 15, strength 5/5, CN 2-12 intact, normal cerebellar exam, normal gait, Psych: Normal behavior, mood, and affect normal Results Laboratory and Microbiology Labs Reviewed?: Yes EKG/XRAY/US/CT/MRI X-RAY Comment X-ray independently visualized by me. Peg tube in place. MDM MDM: Differential diagnosis: PEG tube replacement, peg tube evaluation Previous outside records reviewed: Old ER visits. Need for hospitalization: Patient does not meet criteria for hospitalization. Need for emergency major/minor surgery: No Patient's prior external medical records from other ER visits were reviewed by me as indicated. Prior testing and results from previous visits were reviewed. Prior tests were taken into account with medical decision making and resource utilization, independent historian/historians were used to obtain complete medical history. I independently interpreted the test that were performed, results were reviewed by me and considered findings on radiology if ordered. Medical management and examination interpretation discussions were had by me with other qualified healthcare professionals as indicated for the patient's care. ED Course Orders Procedure Category Date Status Time Peg Replacement Set CPOE 03/07/24 Transmitted Up (Er) 12:43 Abd 1vw RAD 03/07/24 Taken 12:43 Vital Signs Date Time Temp Pulse Resp B/P (MAP) Pulse Ox O2 Delivery O2 Flow Rate FiO2 03/07/24 12:25 97.9 65 20 139/62 99 Room Air 0 DX & DISP Disposition: Discharge Departure Impression: Primary Impression: PEG tube replacement Condition: Stable Additional Instructions: FOLLOW-UP WITH PRIMARY CARE PROVIDER IN 1 TO 2 DAYS. TAKE MEDICATIONS DIRECTED HERE IN THE EMERGENCY ROOM. OKAY TO CONTINUE HOME MEDICATIONS UNLESS OTHERWISE DISCUSSED DURING YOUR VISIT IN THE EMERGENCY ROOM TODAY. RETURN TO YOUR NEAREST EMERGENCY ROOM IF SYMPTOMS WORSEN OR IF THERE IS NO IMPROVEMENT. CALL 911 IF YOU NEED IMMEDIATE ASSISTANCE. TAKE TYLENOL IVLA-UKH-UANLESR NEEDED AND IF NO CONTRAINDICATIONS ARE PRESENT. INCREASE ORAL HYDRATION. A WOUND CULTURE OR URINE CULTURE WAS ORDERED HERE IN THE EMERGENCY ROOM DEPARTMENT PLEASE FOLLOW-UP WITH PRIMARY CARE PROVIDER AND ADVISE THEM TO GET REPEAT PORTS FROM OUR FACILITY. IF YOU HAD ANY SHANNA WRAP/SPLINTS THAT WERE APPLIED HERE, PLEASE DO NOT REMOVE THEM UNTIL YOU SEE YOUR PRIMARY CARE OR SPECIALTY. Referrals: Referrals: JAMI DELCID MD (PCP) Time of Disposition: 13:54 I have reviewed, & agreed with my scribe's, documentation. (Entered by Christiano Triana, acting as a scribe for Dr. Galeano) I personally scribed for ELAINE GALEANO MD ([email or web address]) on 03/07/24 at 12:45. Electronically submitted by Christiano Triana ([email or web address]). I personally scribed for ELAINE GALEANO MD ([email or web address]) on 03/07/24 at 13:55. Electronically submitted by Christiano Triana ([email or web address]). ELAINE GALEANO MD Mar 07, 2024 12:45
--- NOTE | 2024-03-07 13:57 | HMCIMG ---
ABD 1VW HISTORY: PEG tube placement COMPARISON: None FINDINGS: A frontal projection of the abdomen was obtained. Contrast was given through PEG tube with opacification of stomach. No extravasation of contrast is seen. Mild small bowel dilatation is seen. Fecal material is seen in the colon. Degenerative changes of the thoracolumbar spine are noted. IMPRESSION: 1. Mild small bowel dilatation is seen.
[2024-03-07 14:04] VITALS: BP 140/60; PULSE 65; RESP 16; TEMP 98.1; O2SAT 98
--- NOTE | 2024-03-07 14:08 | NUR ---
POSSIBLE SMALL BOWEL DIALATION
--- NOTE | 2024-03-07 14:08 | NUR ---
TO SPEAK TO GI PRIOR TO DC
[2024-03-07] MEDS ORDERED: DIATR MEGLU/DIATRIZOATE SODIUM 30 ML BOTTLE ONE (16:04)
== END 2024-03-07 14:35 | disposition home or self-care (01) ==
LOC: EDH 12:06
DX: Z43.1 Encounter for attention to gastrostomy (principal); E78.00 Pure hypercholesterolemia, unspecified; I25.10 Atherosclerotic heart disease of native coronary artery without angina pectoris; Z79.82 Long term (current) use of aspirin; Z79.890 Hormone replacement therapy; Z79.899 Other long term (current) drug therapy; Z88.0 Allergy status to penicillin; Z88.1 Allergy status to other antibiotic agents; Z95.1 Presence of aortocoronary bypass graft
CPT/HCPCS: 99284; 43762; 74018; Q9963

== ENCOUNTER → 2024-07-02 | Outpatient (CLI) | payer OTHER, MEDICARE ==
[~2024-07-02] MED LIST changes: +IOHEXOL-350 75 ML VIAL IV ONE; -LEVO100C4 PO; +LEVO100C5 PO; -TADA-54 PO; +TADA5TAB14 PO
--- NOTE | 2024-07-02 15:47 | HMCIMG ---
Exam Type: CT NECK SOFT TISSUE W/WO CONTR Clinical Information: Other diseases of pharynx, Personal history of malignant neoplasm of trache Comparison: November 17, 2019 CT Dose Index (CTDI): 7.98 mGy Dose Length Product (DLP): 178.1 total mGy-cm PROTOCOL: Photography is done at 3.8 millimeter thick intervals for the head. The study was performed in the axial plane, and reconstructed and photographed in sagittal and coronal planes as well. Findings: Irregular calcified lesion of the right submandibular region and lateral neck measuring 18 x 33 mm possibly representing a calcified lymph node. This is stable since 2019 and therefore I do not believe it represents viable lesion or tumor at this time. Overlying postsurgical neck dissection changes are seen. No fluid collections or masses are identified. The vascular, muscular, as well as subcutaneous structures are preserved. No significant paranasal sinus pathology is seen. The base of the skull is unremarkable. There are no significant upper airway abnormalities. IMPRESSION: Normal CT of the neck.Irregular calcified lesion of the right submandibular region and lateral neck measuring 18 x 33 mm possibly representing a calcified lymph node. This is stable since 2019 and therefore I do not believe it represents viable lesion or tumor at this time. Overlying postsurgical neck dissection changes are seen. This study was performed using dose reduction techniques to include automated exposure control and/or adjustment of the mA and/or kV according to patient size.
== END | disposition home or self-care (01) ==
LOC: RAH 14:15
PROVIDERS: ATTEND Family Medicine
DX: J39.2 Other diseases of pharynx (principal); K11.8 Other diseases of salivary glands; Z85.810 Personal history of malignant neoplasm of tongue; Z98.890 Other specified postprocedural states
CPT/HCPCS: 70492; Q9967